=== PATIENT | male | born 1975 | race Caucasian/White ===

== ENCOUNTER 2023-01-23 11:56 | Emergency (ER) | payer BC ==
[2023-01-23 13:13] LABS: BASOPHILS ABSOLUTE AUTO 0.08 K/uL (0.00-0.10); BASOPHILS PERCENT AUTO 0.9 % (0.1-1.3); EOSINOPHILS ABSOLUTE AUTO 0.14 K/uL (0.00-0.40); EOSINOPHILS PERCENT AUTO 1.5 % (0.0-5.4); HEMOGLOBIN 14.4 g/dL (12.9-16.9); IMMATURE GRAN ABSOLUTE AUTO 0.03 K/uL (0.00-0.23); IMMATURE GRAN PERCENT AUTO 0.3 % (0.0-0.7); LYMPHOCYTES ABSOLUTE AUTO 1.95 K/uL (0.8-3.3); MEAN CORPUSCULAR HEMOGLOBIN 30.2 pg (31.6-35.5); MEAN CORPUSCULAR HGB CONC 35.1 g/dL (31.6-35.5); MONOCYTES ABSOLUTE AUTO 0.44 K/uL (0.20-0.90); MONOCYTES PERCENT AUTO 4.7 % (3.3-12.6); NEUTROPHILS ABSOLUTE AUTO 6.64 K/uL (1.0-7.6); NEUTROPHILS PERCENT AUTO 71.6 % (40.0-78.1); PLATELET COUNT,PLT 198 K/uL (130-375); RED BLOOD CELL COUNT 4.77 M/uL (4.14-5.76); WHITE BLOOD CELL COUNT,WBC 9.3 K/uL (3.2-11.0)
[2023-01-23 13:43] LABS: ANION GAP 8.8 mmol/L (5.0-14.0); CALCIUM 8.8 mg/dL (8.5-10.1); EST CRCL DRUG DOSING (CG) 86.3 mL/min; MAGNESIUM 2.1 mg/dL (1.8-2.4); POTASSIUM,K 3.8 mmol/L (3.6-5.2); TSH ULTRASENSITIVE 1.688 uIU/mL (0.358-3.740)
[2023-01-23] MEDS ORDERED: Iopamidol 612 MG/ML 100 ML Bottle IV PRN (13:46)
[2023-01-23] MEDS ORDERED: Sodium Chloride 0.9% 100 ML IV SCH (14:00)
== END 2023-01-23 16:18 | disposition home or self-care (01) ==
LOC: JP.ED 11:56
DX: E78.5 Hyperlipidemia, unspecified (principal); R03.0 Elevated blood-pressure reading, without diagnosis of hypertension; F41.9 Anxiety disorder, unspecified; F17.210 Nicotine dependence, cigarettes, uncomplicated; Z79.899 Other long term (current) drug therapy
CPT/HCPCS: 36415; 70450; 70496; 70498; 80048; 83735; 84443; 85025; 99285; J3490; Q9967